=== PATIENT | female | born 1950 | race American Indian/Alaskan Native ===

== ENCOUNTER 2018-02-25 15:10 | Inpatient (IN) | payer MEDICARE ==
[2018-02-25 17:01] LABS: Basophils % (Auto) 0.3 % (0.0-1.8); Eosinophils % (Auto) 0.7 % (0.0-4.3); Hematocrit 38.7 % (30.3-42.9); Hemoglobin 12.5 gm/dl (10.1-14.3); Lymphocytes # (Auto) 0.7 K/mm3 (1.2-5.4); Lymphocytes % (Auto) 9.4 % (13.4-35.0); Mean Corpuscular HGB Conc 32 % (30-34); Mean Corpuscular Hemoglobin 33 pg (28-32); Mean Corpuscular Volume 103 fl (79-97); Monocytes # (Auto) 0.5 K/mm3 (0.0-0.8); Monocytes % (Auto) 6.7 % (0.0-7.3); Platelet Count 190 K/mm3 (140-440); Red Blood Count 3.77 M/mm3 (3.65-5.03); Red Cell Distribution Width 15.6 % (13.2-15.2)
--- NOTE | 2018-02-25 17:17 | Emergency Department Report ---
ED Shortness of Breath HPI - General Chief Complaint: Dyspnea/Respdistress Stated Complaint: BREATHING PROBLEMS Time Seen by Provider: 02/25/18 16:05 Source: EMS Mode of arrival: Stretcher Limitations: No Limitations - History of Present Illness Initial Comments: pt. after leaving the social security office felt very weak generalised and told her daughter. she was also breathing heavily and the daughter noticed she had decresaed level of responsiveness and so they called the paramedics. when they got there her BP and blood sugar were normal.she is presently back to baseline. her xygen level was 90% on her baseline 3 litres and they put her on cpap and this improved her oxygenation.daughter also noticed she had drooling MD Complaint: shortness of breath -: Gradual Severity: moderate Consistency: now resolved Improves With: oxygen Worsens With: nothing Known History Of: congestive heart failure - Related Data Home Medications Medication Instructions Recorded Confirmed Last Taken Clopidogrel [Plavix] 75 mg PO QPM 02/25/18 02/25/18 Unknown Gabapentin [Neurontin] 100 mg PO TID 02/25/18 02/25/18 Unknown Insulin Glargine,Hum.rec.anlog 20 unit SQ QHS 02/25/18 02/25/18 Unknown [Lantus Solostar] Sevelamer Carbonate [Renvela] 2,400 mg PO AC 02/25/18 02/25/18 02/24/18 Simvastatin [Zocor TAB] 20 mg PO QHS 02/25/18 02/25/18 Unknown Vit B Comp C/Folic Acid/Vit D3 1 each PO QPM 02/25/18 02/25/18 Unknown [Dialyvite 800 Plus D Wafer] traMADol [Ultram] 50 mg PO Q4HR PRN 02/25/18 02/25/18 Unknown Allergies Allergy/AdvReac Type Severity Reaction Status Date / Time codeine Allergy Unknown Verified 02/25/18 16:22 ED Review of Systems ROS: Stated complaint: BREATHING PROBLEMS Other details as noted in HPI Comment: All other systems reviewed and negative ED Past Medical Hx - Past Medical History Previous Medical History?: Yes Hx Hypertension: Yes Hx Congestive Heart Failure: Yes Hx Diabetes: Yes Hx Renal Disease: Yes (ESRD HD [id number]) Additional medical history: HLD - Surgical History Past Surgical History?: Yes Additional Surgical History: AV fistula - Medications Home Medications: Home Medications Medication Instructions Recorded Confirmed Last Taken Type Clopidogrel [Plavix] 75 mg PO QPM 02/25/18 02/25/18 Unknown History Gabapentin [Neurontin] 100 mg PO TID 02/25/18 02/25/18 Unknown History Insulin Glargine,Hum.rec.anlog 20 unit SQ QHS 02/25/18 02/25/18 Unknown History [Lantus Solostar] Sevelamer Carbonate [Renvela] 2,400 mg PO AC 02/25/18 02/25/18 02/24/18 History Simvastatin [Zocor TAB] 20 mg PO QHS 02/25/18 02/25/18 Unknown History Vit B Comp C/Folic Acid/Vit D3 1 each PO QPM 02/25/18 02/25/18 Unknown History [Dialyvite 800 Plus D Wafer] traMADol [Ultram] 50 mg PO Q4HR PRN 02/25/18 02/25/18 Unknown History ED Physical Exam - General Limitations: No Limitations General appearance: alert, in no apparent distress - Head Head exam: Present: atraumatic - Eye Eye exam: Present: normal appearance, PERRL - ENT ENT exam: Present: mucous membranes moist - Neck Neck exam: Present: normal inspection - Respiratory Respiratory exam: Present: normal lung sounds bilaterally. Absent: respiratory distress - Cardiovascular Cardiovascular Exam: Present: regular rate, normal rhythm. Absent: systolic murmur, diastolic murmur, rubs, gallop - GI/Abdominal GI/Abdominal exam: Present: soft, normal bowel sounds - Extremities Exam Extremities exam: Present: normal inspection - Neurological Exam Neurological exam: Present: alert, oriented X3 - Psychiatric Psychiatric exam: Present: normal affect, normal mood - Skin Skin exam: Present: warm, dry, intact, normal color. Absent: rash ED Course Vital Signs 02/25/18 02/25/18 02/25/18 16:06 16:08 16:10 Temperature Pulse Rate 87 88 88 Respiratory 16 15 16 Rate Blood Pressure 107/59 107/59 Blood Pressure [Right] O2 Sat by Pulse 94 99 99 Oximetry 02/25/18 02/25/18 02/25/18 16:12 16:14 16:19 Temperature 98.9 F Pulse Rate 90 88 Respiratory 23 14 Rate Blood Pressure 107/59 107/59 Blood Pressure [Right] O2 Sat by Pulse 95 98 Oximetry 02/25/18 02/25/18 02/25/18 17:58 18:00 18:01 Temperature Pulse Rate 89 88 88 Respiratory 23 14 16 Rate Blood Pressure 108/59 107/52 107/52 Blood Pressure [Right] O2 Sat by Pulse 96 97 96 Oximetry 02/25/18 02/25/18 02/25/18 18:02 18:04 18:06 Temperature Pulse Rate 81 87 86 Respiratory 17 18 14 Rate Blood Pressure 107/52 107/52 107/52 Blood Pressure [Right] O2 Sat by Pulse 96 96 96 Oximetry 02/25/18 02/25/18 02/25/18 18:08 18:10 18:12 Temperature Pulse Rate 87 88 86 Respiratory 25 H 15 14 Rate Blood Pressure 107/52 107/52 107/52 Blood Pressure [Right] O2 Sat by Pulse 98 98 97 Oximetry 02/25/18 02/25/18 02/25/18 18:14 18:16 18:18 Temperature Pulse Rate 88 86 89 Respiratory 13 16 19 Rate Blood Pressure 107/52 101/45 101/45 Blood Pressure [Right] O2 Sat by Pulse 96 98 97 Oximetry 02/25/18 02/25/18 02/25/18 18:20 18:21 18:22 Temperature Pulse Rate 88 89 89 Respiratory 14 15 17 Rate Blood Pressure 101/45 101/45 Blood Pressure [Right] O2 Sat by Pulse 95 96 97 Oximetry 02/25/18 02/25/18 02/25/18 18:24 18:26 18:28 Temperature Pulse Rate 91 H 86 90 Respiratory 21 15 14 Rate Blood Pressure 101/45 101/45 101/45 Blood Pressure [Right] O2 Sat by Pulse 93 93 92 Oximetry 02/25/18 02/25/18 02/25/18 18:30 18:31 18:32 Temperature Pulse Rate 89 88 88 Respiratory 13 15 20 Rate Blood Pressure 101/45 115/52 115/52 Blood Pressure [Right] O2 Sat by Pulse 94 94 95 Oximetry 02/25/18 02/25/18 02/25/18 18:33 18:34 18:35 Temperature Pulse Rate 88 87 87 Respiratory 12 15 14 Rate Blood Pressure 115/52 Blood Pressure [Right] O2 Sat by Pulse 95 96 94 Oximetry 02/25/18 02/25/18 02/25/18 18:36 18:37 18:39 Temperature Pulse Rate 87 87 87 Respiratory 16 14 16 Rate Blood Pressure 115/52 Blood Pressure [Right] O2 Sat by Pulse 93 94 97 Oximetry 02/25/18 02/25/18 02/25/18 18:41 18:43 18:45 Temperature Pulse Rate 90 87 86 Respiratory 15 15 18 Rate Blood Pressure 115/52 109/57 Blood Pressure [Right] O2 Sat by Pulse 95 98 97 Oximetry 02/25/18 02/25/18 02/25/18 18:46 18:47 18:49 Temperature Pulse Rate 86 86 86 Respiratory 16 15 16 Rate Blood Pressure 109/57 109/57 109/57 Blood Pressure [Right] O2 Sat by Pulse 97 96 94 Oximetry 02/25/18 02/25/18 02/25/18 18:51 18:53 18:55 Temperature Pulse Rate 86 86 86 Respiratory 17 18 17 Rate Blood Pressure 109/57 109/57 109/57 Blood Pressure [Right] O2 Sat by Pulse 94 93 94 Oximetry 02/25/18 02/25/18 02/25/18 18:57 18:59 19:01 Temperature Pulse Rate 86 86 87 Respiratory 15 19 16 Rate Blood Pressure 109/57 109/57 103/52 Blood Pressure [Right] O2 Sat by Pulse 92 93 93 Oximetry 02/25/18 02/25/18 02/25/18 19:03 19:05 19:07 Temperature Pulse Rate 87 87 87 Respiratory 17 16 16 Rate Blood Pressure 103/52 103/52 103/52 Blood Pressure [Right] O2 Sat by Pulse 94 95 94 Oximetry 02/25/18 02/25/18 02/25/18 19:09 19:11 19:13 Temperature Pulse Rate 88 86 90 Respiratory 20 18 21 Rate Blood Pressure 103/52 103/52 103/52 Blood Pressure [Right] O2 Sat by Pulse 94 96 96 Oximetry 02/25/18 02/25/18 02/25/18 19:15 19:17 19:19 Temperature Pulse Rate 88 88 89 Respiratory 19 17 18 Rate Blood Pressure 94/55 94/55 94/55 Blood Pressure [Right] O2 Sat by Pulse 96 96 95 Oximetry 02/25/18 02/25/18 02/25/18 19:21 19:23 19:30 Temperature Pulse Rate 88 89 88 Respiratory 17 14 14 Rate Blood Pressure 94/55 94/55 105/50 Blood Pressure [Right] O2 Sat by Pulse 93 93 93 Oximetry 02/25/18 02/25/18 02/25/18 19:31 20:00 20:07 Temperature 98.2 F Pulse Rate 81 87 88 Respiratory 21 18 Rate Blood Pressure 116/59 102/62 Blood Pressure 94/55 [Right] O2 Sat by Pulse 92 92 Oximetry 02/25/18 02/25/18 02/25/18 20:30 21:00 21:30 Temperature Pulse Rate 83 84 85 Respiratory 17 17 18 Rate Blood Pressure 99/52 99/55 117/60 Blood Pressure [Right] O2 Sat by Pulse 94 94 94 Oximetry 02/25/18 02/25/18 22:00 22:05 Temperature 99.3 F Pulse Rate 82 84 Respiratory 15 16 Rate Blood Pressure 113/57 Blood Pressure 105/58 [Right] O2 Sat by Pulse 95 94 Oximetry ED Medical Decision Making - Lab Data Result diagrams: 02/25/18 16:45 02/25/18 16:45 - EKG Data -: EKG Interpreted by Me EKG shows normal: sinus rhythm, axis (normal), intervals (normal), QRS complexes (normal), ST-T waves (t wave inversion in lead 11,111 ,avf and v3 -v6) Rate: normal (rate is 83) - Medical Decision Making i spoke to Dr Butler and he said to get a repeat troponoin and if it is same or lower no need to start the heparin. Dr Goncalves accepted the patient for admission Critical care attestation.: If time is entered above; I have spent that time in minutes in the direct care of this critically ill patient, excluding procedure time. ED Disposition Clinical Impression: Pre-syncope, Abnormal cardiac enzyme level Disposition: OP ADMIT IP TO THIS HOSP Is pt being admited?: Yes Does the pt Need Aspirin: Yes Condition: Stable
[2018-02-25 17:37] LABS: Albumin 4.1 g/dL (3.9-5); Calcium 9.4 mg/dL (8.4-10.2)
--- NOTE | 2018-02-25 18:23 | XRay Report ---
FINAL REPORT PROCEDURE: XR CHEST 1V AP TECHNIQUE: Chest radiograph anteroposterior view. CPT 26092 HISTORY: Dyspnea COMPARISON: No prior studies are available for comparison. FINDINGS: Heart: Cardiac silhouette is at the upper limit of normal in size Mediastinum/Vessels: Normal. Lungs/Pleural space: Normal. Bony thorax: No acute osseous abnormality. Life support devices: There is a vascular stent in the region of the left subclavian. IMPRESSION: Prominent cardiac silhouette. No pulmonary infiltrates are seen
--- NOTE | 2018-02-25 18:37 | Cat Scan Report ---
FINAL REPORT PROCEDURE: CT HEAD/BRAIN WO CON TECHNIQUE: Computerized tomography of the head was performed without contrast material. HISTORY: presyncope COMPARISON: No prior studies are available for comparison. FINDINGS: No CT evidence of intracranial mass, hemorrhage, acute territorial infarction, or hydrocephalus. Mild bilateral periventricular white matter low density, compatible with chronic microvascular ischemic changes. The intracranial arteries are symmetric in density. Calvarium is intact. Visualized paranasal sinuses and mastoids are aerated. IMPRESSION: No CT evidence of acute abnormality
[2018-02-25] MEDS ORDERED: BABY ASPIRIN PO ONE (19:33)
[2018-02-25] MEDS ORDERED: LOPRESSOR PO ONE (19:34)
[2018-02-25] MEDS ORDERED: D5W IV SCH (20:00)
[2018-02-25] MEDS ORDERED: HEPARIN IV SCH (20:00)
[2018-02-25 20:14] LABS: INR 1.01 (0.87-1.13)
[2018-02-25] MEDS ORDERED: HEPARIN 10,000 UNITS/10 ML IV ONE (21:19)
[2018-02-25] MEDS ORDERED: HEPARIN 10,000 UNITS/10 ML ONE (21:47)
[2018-02-25] MEDS ORDERED: HEPARIN 25,000 UNIT in D5W 497.5 ML IV SCH (22:00)
[2018-02-26] MEDS ORDERED: AMBIEN PO PRN (00:10)
[2018-02-26] MEDS ORDERED: PROVENTIL IH PRN (00:10)
[2018-02-26] MEDS ORDERED: D50W (25GM) Syringe IV PRN (00:10)
[2018-02-26] MEDS ORDERED: PERCOCET 5/325 PO PRN (00:10)
[2018-02-26] MEDS ORDERED: SODIUM CHLORIDE FLUSH SYRINGE 10 ML IV PRN (00:10)
[2018-02-26] MEDS ORDERED: ZOFRAN IV PRN (00:10)
[2018-02-26] MEDS ORDERED: MORPHINE IV PRN (00:10)
[2018-02-26] MEDS ORDERED: TYLENOL PO PRN (00:10)
[2018-02-26] MEDS ORDERED: ULTRAM PO PRN (00:18)
[2018-02-26] MEDS: DUONEB *Not for PRN Use IH SCH ×4 (03:35→20:06)
[2018-02-26] MEDS: HEPARIN SUB-Q SCH ×3 (06:00→23:03)
--- NOTE | 2018-02-26 06:49 | History and Physical Report ---
History of Present Illness Date of examination: 02/25/18 Date of admission: 02/25/18 20:03 Chief complaint: Shortness of breath History of present illness: pt. after leaving the social security office felt very weak generalised and told her daughter. she was also breathing heavily and the daughter noticed she had decresaed level of responsiveness and so they called the paramedics. when they got there her BP and blood sugar were normal.she is presently back to baseline. her xygen level was 90% on her baseline 3 litres and they put her on cpap and this improved her oxygenation.daughter also noticed she had drooling Past Medical History significant for hypertension and congestive heart failure diabetes and incisional disease on hemodialysis Thursday hyperlipidemia - Surgical History - AV fistula Past History Past Medical History: diabetes Social history: full code. denies: smoking, alcohol abuse, IV drug use Medications and Allergies Allergies Allergy/AdvReac Type Severity Reaction Status Date / Time codeine Allergy Unknown Verified 02/25/18 16:22 Home Medications Medication Instructions Recorded Confirmed Last Taken Type Clopidogrel [Plavix] 75 mg PO QPM 02/25/18 02/25/18 Unknown History Gabapentin [Neurontin] 100 mg PO TID 02/25/18 02/25/18 Unknown History Insulin Glargine,Hum.rec.anlog 20 unit SQ QHS 02/25/18 02/25/18 Unknown History [Lantus Solostar] Sevelamer Carbonate [Renvela] 2,400 mg PO AC 02/25/18 02/25/18 02/24/18 History Simvastatin [Zocor TAB] 20 mg PO QHS 02/25/18 02/25/18 Unknown History Vit B Comp C/Folic Acid/Vit D3 1 each PO QPM 02/25/18 02/25/18 Unknown History [Dialyvite 800 Plus D Wafer] traMADol [Ultram] 50 mg PO Q4HR PRN 02/25/18 02/25/18 Unknown History Active Meds: Active Medications Acetaminophen (Tylenol) 650 mg PO Q4H PRN PRN Reason: Pain MILD(1-3)/Fever >100.5/[place] Albuterol (Proventil) 2.5 mg IH Q3HRT PRN PRN Reason: Shortness Of Breath Albuterol/Ipratropium (Duoneb *Not For Prn Use*) 1 ampul IH Q6HRT [facility] Last Admin: 02/26/18 03:35 Dose: Not Given Clopidogrel Bisulfate (Plavix) 75 mg PO QPM [facility] Dextrose (D50w (25gm) Syringe) 50 ml IV PRN PRN PRN Reason: Hypoglycemia Docusate Sodium (Colace) 100 mg PO BID [facility] Gabapentin (Neurontin) 100 mg PO TID [facility] Heparin Sodium (Porcine) (Heparin) 5,000 unit SUB-Q Q8HR [facility] Last Admin: 02/26/18 06:00 Dose: 5,000 unit Insulin Glargine (Lantus) 20 units SUB-Q QHS [facility] Insulin Human Lispro (Humalog) 0 unit SUB-Q ACHS [facility]; Protocol Miscellaneous Medication (Vit B Comp C/Folic Acid/Vit D3 [Dialyvite 800 Plus D Wafer]) 1 each PO QPM [facility] Morphine Sulfate (Morphine) 2 mg IV Q4H PRN PRN Reason: Pain, Moderate (4-6) Ondansetron HCl (Zofran) 4 mg IV Q8H PRN PRN Reason: Nausea And Vomiting Oxycodone/Acetaminophen (Percocet 5/325) 1 tab PO Q6H PRN PRN Reason: Pain, Moderate (4-6) Pantoprazole Sodium (Protonix) 40 mg PO QDAY [facility] Pravastatin Sodium (Pravachol) 40 mg PO QHS [facility] Senna (Senokot) 8.6 mg PO Q12HR [facility] Sevelamer Carbonate (Renvela) 2,400 mg PO AC [facility] Sodium Chloride (Sodium Chloride Flush Syringe 10 Ml) 10 ml IV BID [facility] Sodium Chloride (Sodium Chloride Flush Syringe 10 Ml) 10 ml IV PRN PRN PRN Reason: LINE FLUSH Tramadol HCl (Ultram) 50 mg PO Q4HR PRN PRN Reason: Pain Zolpidem Tartrate (Ambien) 5 mg PO QHS PRN PRN Reason: Insomnia Review of Systems All systems: negative (all 14 systems reviewed and found to be negative except as mentioned in HPI) Exam - Physical Exam Narrative exam: General: the patient is awake alert oriented to time place and person. no evidence of acute distress HEENT: Head is atraumatic normocephalic,. Pupils equal round reactive to light and accommodation, extraocular movements intact. Oral mucosa moist. Oropharynx clear. No pharyngeal erythema or tonsillar exudate. Neck: Supple no JVD no thyromegaly or lymphadenopathy. Heart: Regular rate and rhythm no murmurs or gallops. S1 and S2 normal. PMI not displaced. Lungs: Clear to auscultation bilaterally. No rales rhonchi wheezing. Nonlabored breathing. Normal chest wall expansion. Abdomen: Soft, nondistended, and nontender. Normoactive bowel sounds. No hepatosplenomegaly. No abdominal masses or bruit appreciated. Extremities: No cyanosis/clubbing/ edema. Musculoskeletal: Normal range of movement all joints. No obvious deformity or tenderness to palpation. Normal muscle tone. Back: Normal alignment. No step-off. No midline or paraspinal tenderness. No CVA tenderness. Neurological: Grossly intact and nonfocal. No cerebellar signs. Cranial nerves II-12 grossly intact. Strength 5 out of 5 all 4 extremities. Sensations grossly intact. Skin: Warm and dry no rashes or bruises. Psychiatric: Normal mood. Appropriate affect and good insight and judgment. Vascular system: No lymphadenopathy. Distal pulses 2+ bilaterally. - Constitutional Vitals: Temp Pulse Resp BP Pulse Ox 99.2 F 70 20 88/70 95 02/25/18 23:10 02/26/18 05:41 02/25/18 23:10 02/26/18 05:39 02/26/18 05:39 Results - Labs CBC & Chem 7: 02/25/18 16:45 02/25/18 16:45 Labs: Laboratory Last Values WBC 7.1 K/mm3 (4.5-11.0) 02/25/18 16:45 RBC 3.77 M/mm3 (3.65-5.03) 02/25/18 16:45 Hgb 12.5 gm/dl (10.1-14.3) 02/25/18 16:45 Hct 38.7 % (30.3-42.9) 02/25/18 16:45 MCV 103 fl (79-97) H 02/25/18 16:45 MCH 33 pg (28-32) H 02/25/18 16:45 MCHC 32 % (30-34) 02/25/18 16:45 RDW 15.6 % (13.2-15.2) H 02/25/18 16:45 Plt Count 190 K/mm3 (140-440) 02/25/18 16:45 Lymph % (Auto) 9.4 % (13.4-35.0) L 02/25/18 16:45 [place] % (Auto) 6.7 % (0.0-7.3) 02/25/18 16:45 Eos % (Auto) 0.7 % (0.0-4.3) 02/25/18 16:45 Baso % (Auto) 0.3 % (0.0-1.8) 02/25/18 16:45 Lymph # 0.7 K/mm3 (1.2-5.4) L 02/25/18 16:45 [place] # 0.5 K/mm3 (0.0-0.8) 02/25/18 16:45 Eos # 0.0 K/mm3 (0.0-0.4) 02/25/18 16:45 Baso # 0.0 K/mm3 (0.0-0.1) 02/25/18 16:45 Seg Neutrophils % 82.9 % (40.0-70.0) H 02/25/18 16:45 Seg Neutrophils # 5.9 K/mm3 (1.8-7.7) 02/25/18 16:45 PT 13.8 Sec. (12.2-14.9) 02/25/18 19:56 INR 1.01 (0.87-1.13) 02/25/18 19:56 APTT 33.0 Sec. (24.2-36.6) 02/25/18 19:56 Sodium 139 mmol/L (137-145) 02/25/18 16:45 Potassium 4.3 mmol/L (3.6-5.0) 02/25/18 16:45 Chloride 93.8 mmol/L (98-107) L 02/25/18 16:45 Carbon Dioxide 22 mmol/L (22-30) 02/25/18 16:45 Anion Gap 28 mmol/L 02/25/18 16:45 BUN 33 mg/dL (7-17) H 02/25/18 16:45 Creatinine 6.7 mg/dL (0.7-1.2) H 02/25/18 16:45 Estimated GFR 7 ml/min 02/25/18 16:45 BUN/Creatinine Ratio 5 % 02/25/18 16:45 Glucose 213 mg/dL (65-100) H 02/25/18 16:45 POC Glucose 151 (70-105) H 02/26/18 05:48 Hemoglobin A1c 6.9 % (4-6) H 02/26/18 00:43 Calcium 9.4 mg/dL (8.4-10.2) 02/25/18 16:45 Total Bilirubin 0.60 mg/dL (0.1-1.2) 02/25/18 16:45 AST 19 units/L (5-40) 02/25/18 16:45 ALT 18 units/L (7-56) 02/25/18 16:45 Alkaline Phosphatase 133 units/L (35-129) H 02/25/18 16:45 Troponin T 0.193 ng/mL (0.00-0.029) H* 02/25/18 22:47 NT-Pro-B Natriuret Pep 67823 pg/mL (0-900) H 02/25/18 16:45 Total Protein 8.1 g/dL (6.3-8.2) 02/25/18 16:45 Albumin 4.1 g/dL (3.9-5) 02/25/18 16:45 Albumin/Globulin Ratio 1.0 % 02/25/18 16:45 Triglycerides 116 mg/dL (2-149) 02/25/18 16:45 Cholesterol 102 mg/dL (50-199) 02/25/18 16:45 LDL Cholesterol Direct 38 mg/dL (50-130) L 02/25/18 16:45 HDL Cholesterol 51 mg/dL (40-59) 02/25/18 16:45 Cholesterol/HDL Ratio 2.00 % 02/25/18 16:45 - Imaging and Cardiology Imaging and Cardiology: EKG shows normal: sinus rhythm, axis (normal), intervals (normal), QRS complexes (normal), ST-T waves (t wave inversion in lead 11,111 ,avf and v3 -v6) Rate: normal (rate is 83) Chest x-ray showing cardiomegaly but no pulmonary infiltrates. Otherwise negative for acute cardiopulmonary process CT head showing no acute abnormality Assessment and Plan Assessment and plan: Assessment and plan - * Syncope * Acute and chronic respiratory failure * CHF * End-stage renal disease on hemodialysis * Diabetes mellitus type 2 * Anemia likely secondary to end-stage renal disease Plan - Admit the patient to medical surgical floor with telemetry MRI brain and carotid ultrasound and echocardiogram Serial cardiac enzymes Monitor closely on telemetry Nephrology consulted for hemodialysis Start on Lipitor and aspirin Check hemoglobin A1c, monitor blood sugars with Accu-Cheks every before meals and daily at bedtime and cover with sliding scale insulin and continue her home dose of Lantus Check a fasting lipid panel Continue oxygen aggressive bronchodilators scheduled and when necessary Monitor CBC and electrolytes Replace electrolytes when necessary DVT GI prophylaxis as ordered Monitor follow the patient closely VTE prophylaxis?: Chemical, Mechanical Plan of care discussed with patient/family: Yes
[2018-02-26] MEDS ORDERED: SEVELAMER CARBONATE 2400 MG PO SCH (07:30)
[2018-02-26] MEDS: HumaLOG SUB-Q SCH ×3 (07:30→16:30)
[2018-02-26 08:03] LABS: Basophils % (Auto) 0.4 % (0.0-1.8); Eosinophils # (Auto) 0.1 K/mm3 (0.0-0.4); Eosinophils % (Auto) 1.6 % (0.0-4.3); Hematocrit 32.4 % (30.3-42.9); Hemoglobin 10.2 gm/dl (10.1-14.3); Lymphocytes % (Auto) 14.6 % (13.4-35.0); Mean Corpuscular HGB Conc 32 % (30-34); Mean Corpuscular Hemoglobin 33 pg (28-32); Mean Corpuscular Volume 104 fl (79-97); Monocytes # (Auto) 0.7 K/mm3 (0.0-0.8); Monocytes % (Auto) 10.7 % (0.0-7.3); Platelet Count 194 K/mm3 (140-440); Red Blood Count 3.12 M/mm3 (3.65-5.03); Red Cell Distribution Width 15.6 % (13.2-15.2)
[2018-02-26 08:24] LABS: Albumin 3.9 g/dL (3.9-5); Calcium 9.3 mg/dL (8.4-10.2)
[2018-02-26] MEDS: SENOKOT PO SCH ×2 (10:18→23:04)
[2018-02-26] MEDS: PROTONIX PO SCH (10:18)
[2018-02-26] MEDS: NEURONTIN PO SCH ×3 (10:18→23:03)
[2018-02-26] MEDS: COLACE PO SCH ×2 (10:19→23:03)
[2018-02-26] MEDS: RENVELA PO SCH ×3 (10:19→16:30)
[2018-02-26] MEDS: SODIUM CHLORIDE FLUSH SYRINGE 10 ML IV SCH ×2 (10:20→23:04)
--- NOTE | 2018-02-26 15:43 | Progress Note ---
Assessment and Plan Assessment and plan: Patient is a 67 yo woman with a history of IDDM w/ neuropathy, dyslipidemia, ESRD on hemodialysis MWF, chronic Subclavian Venous Stenosis s/p stent prior to arrival (d/w Dr. Luis Stephens), chronic respiratory failure on 2 liters of o2 at home and CHF who presented to ED with sob and syncope episode. -Syncope most likely vasovagal but stroke work up ordered, pt may have became hypoxic: mri pending (the Left Subclavian Vein stent is compatible per Dr. Stephens ) -ESRD: Nephrology is following, needs hemodialysis, potassium can be replaced during hemodialysis -Acute on chronic hypoxic respiratory failure: HD should help. -IDDM: add ssi, ada diet -Suspect acute on chronic heart failure: ECHO pending. -Chronic subclavian venous stensis s/p repeat stent: outpt follow up with Dr. Luis Stephens Hospitalist Physical - Constitutional Vitals: Temp Pulse Resp BP Pulse Ox 98.4 F 74 20 96/42 91 02/26/18 11:46 02/26/18 13:00 02/26/18 11:46 02/26/18 11:46 02/26/18 11:46 Results - Labs CBC & Chem 7: 02/26/18 07:34 02/26/18 07:34 Labs: Laboratory Last Values WBC 6.5 K/mm3 (4.5-11.0) 02/26/18 07:34 RBC 3.12 M/mm3 (3.65-5.03) L 02/26/18 07:34 Hgb 10.2 gm/dl (10.1-14.3) 02/26/18 07:34 Hct 32.4 % (30.3-42.9) D 02/26/18 07:34 MCV 104 fl (79-97) H 02/26/18 07:34 MCH 33 pg (28-32) H 02/26/18 07:34 MCHC 32 % (30-34) 02/26/18 07:34 RDW 15.6 % (13.2-15.2) H 02/26/18 07:34 Plt Count 194 K/mm3 (140-440) 02/26/18 07:34 Lymph % (Auto) 14.6 % (13.4-35.0) 02/26/18 07:34 [place] % (Auto) 10.7 % (0.0-7.3) H 02/26/18 07:34 Eos % (Auto) 1.6 % (0.0-4.3) 02/26/18 07:34 Baso % (Auto) 0.4 % (0.0-1.8) 02/26/18 07:34 Lymph # 1.0 K/mm3 (1.2-5.4) L 02/26/18 07:34 [place] # 0.7 K/mm3 (0.0-0.8) 02/26/18 07:34 Eos # 0.1 K/mm3 (0.0-0.4) 02/26/18 07:34 Baso # 0.0 K/mm3 (0.0-0.1) 02/26/18 07:34 Seg Neutrophils % 72.7 % (40.0-70.0) H 02/26/18 07:34 Seg Neutrophils # 4.8 K/mm3 (1.8-7.7) 02/26/18 07:34 PT 13.8 Sec. (12.2-14.9) 02/25/18 19:56 INR 1.01 (0.87-1.13) 02/25/18 19:56 APTT 33.0 Sec. (24.2-36.6) 02/25/18 19:56 Sodium 141 mmol/L (137-145) 02/26/18 07:34 Potassium 4.8 mmol/L (3.6-5.0) 02/26/18 07:34 Chloride 95.1 mmol/L (98-107) L 02/26/18 07:34 Carbon Dioxide 26 mmol/L (22-30) 02/26/18 07:34 Anion Gap 25 mmol/L 02/26/18 07:34 BUN 44 mg/dL (7-17) H 02/26/18 07:34 Creatinine 7.8 mg/dL (0.7-1.2) H 02/26/18 07:34 Estimated GFR 6 ml/min 02/26/18 07:34 BUN/Creatinine Ratio 6 % 02/26/18 07:34 Glucose 160 mg/dL (65-100) H 02/26/18 07:34 POC Glucose 151 (70-105) H 02/26/18 05:48 Hemoglobin A1c 6.9 % (4-6) H 02/26/18 00:43 Calcium 9.3 mg/dL (8.4-10.2) 02/26/18 07:34 Phosphorus 5.30 mg/dL (2.5-4.5) H 02/26/18 07:34 Magnesium 2.50 mg/dL (1.7-2.3) H 02/26/18 07:34 Total Bilirubin 0.50 mg/dL (0.1-1.2) 02/26/18 07:34 AST 14 units/L (5-40) 02/26/18 07:34 ALT 14 units/L (7-56) 02/26/18 07:34 Alkaline Phosphatase 107 units/L (35-129) 02/26/18 07:34 Troponin T 0.196 ng/mL (0.00-0.029) H* 02/26/18 07:34 NT-Pro-B Natriuret Pep 26225 pg/mL (0-900) H 02/25/18 16:45 Total Protein 7.2 g/dL (6.3-8.2) 02/26/18 07:34 Albumin 3.9 g/dL (3.9-5) 02/26/18 07:34 Albumin/Globulin Ratio 1.2 % 02/26/18 07:34 Triglycerides 116 mg/dL (2-149) 02/25/18 16:45 Cholesterol 102 mg/dL (50-199) 02/25/18 16:45 LDL Cholesterol Direct 38 mg/dL (50-130) L 02/25/18 16:45 HDL Cholesterol 51 mg/dL (40-59) 02/25/18 16:45 Cholesterol/HDL Ratio 2.00 % 02/25/18 16:45
[2018-02-26] MEDS ORDERED: HEPARIN 10,000 UNITS/10 ML IV PRN (16:50)
[2018-02-26] MEDS ORDERED: NACL 0.9% 100 ML IV PRN (16:50)
[2018-02-26 17:58] LABS: Creatine Kinase MB 3.9 ng/mL (0.0-4.0)
[2018-02-26] MEDS ORDERED: PLAVIX PO SCH (18:00)
[2018-02-26] MEDS ORDERED: NON-FORMULARY (Vit B Comp C/Folic Acid/Vit D3 [Dialyvite 800 Plus D Wafer] 1 EACH) PO SCH (18:00)
[2018-02-26] MEDS ORDERED: NACL 0.9 (PRIMING MACHINE ONLY DIALYSIS) MC ONE (18:50)
[2018-02-26] MEDS ORDERED: LANTUS SUB-Q SCH (22:00)
[2018-02-26] MEDS ORDERED: NON-FORMULARY (Insulin Glargine,Hum.Rec.Anlog [Lantus Solostar] 20 UNIT) SQ SCH (22:00)
[2018-02-26] MEDS ORDERED: NON-FORMULARY (Simvastatin 20 MG) PO SCH (22:00)
[2018-02-26] MEDS ORDERED: PRAVACHOL PO SCH (22:00)
[2018-02-27] MEDS: HumaLOG SUB-Q SCH ×2 (00:34→10:12)
[2018-02-27] MEDS: DUONEB *Not for PRN Use IH SCH ×3 (02:36→15:07)
[2018-02-27 04:33] VITALS: BP 107/62
[2018-02-27] MEDS: HEPARIN SUB-Q SCH (05:50)
[2018-02-27] MEDS: RENVELA PO SCH (10:13)
[2018-02-27] MEDS: COLACE PO SCH (10:13)
[2018-02-27] MEDS: SENOKOT PO SCH (10:13)
[2018-02-27] MEDS: PROTONIX PO SCH (10:13)
[2018-02-27] MEDS: SODIUM CHLORIDE FLUSH SYRINGE 10 ML IV SCH (10:14)
[2018-02-27] MEDS: NEURONTIN PO SCH (10:14)
[2018-02-27] MEDS ORDERED: ATROPINE 0.1% (CARDIAC) ONE (11:30)
[2018-02-27] MEDS ORDERED: CALCIUM CHLORIDE IV ONE (11:30)
[2018-02-27] MEDS ORDERED: ADRENALIN ONE (11:30)
[2018-02-27] MEDS ORDERED: SODIUM BICARBONATE IV ONE (11:30)
--- NOTE | 2018-02-27 12:13 | Event Note ---
Date: 02/27/18 Ms. Kevin had a tonic clonic seizure witnessed by nurse Juan, CODE MET was called followed by respiratory arrest then bradycardia with PEA, CODE BLUE called. When I arrived, pt was unresponsive with agonal breathing but had a pulse, no seizures seen. Intubation protocol was ordered. Patient lost her pulse and chest compressions were started. Epi was given. ED physician, Dr. Huff was present. ACLS protocol was continued. Intubation was unsuccessful. Anesthesia arrived. Patient still with PEA, atropine, bicarbonate given. After more than 20 minutes, patient was intubated by Anesthesia using a glydescope. Patient went into asystole, time of 1201. I spoke with daughter, Renea.
--- NOTE | 2018-02-27 12:34 | Discharge Summary ---
Providers - Providers Date of Admission: 02/25/18 20:03 Date of discharge: 02/27/18 Attending physician: TOAN HASSAN 02/26/18 15:37 Physical Therapy Evaluation and Treat [CONS] Routine Comment: Reason For Exam: stroke workup 02/26/18 15:38 Occupational Therapy Evaluate and Treat [CONS] Routine Comment: Reason For Exam: stroke workup 02/26/18 16:39 Consult to Physician [CONS] Routine Comment: Consulting Provider: JORY BLISS Physician Instructions: Reason For Exam: ESRD need hemodialysis, pt known to Dr. Fisher Primary care physician: CAREER SERVICES ASSISTANT Hospitalization Hospital course: Patient is a 67 yo woman with a history of IDDM w/ neuropathy, dyslipidemia, ESRD on hemodialysis MWF, chronic Subclavian Venous Stenosis s/p stent prior to arrival (d/w Dr. Luis Stephens), chronic respiratory failure on 2 liters of o2 at home and CHF who presented to ED with sob and syncope episode. -Syncope most likely vasovagal but stroke work up ordered, pt may have became hypoxic: mri pending (the Left Subclavian Vein stent is compatible per Dr. Stephens ) -ESRD: Nephrology is following, needs hemodialysis, potassium can be replaced during hemodialysis, Nephrology notified -Acute on chronic hypoxic respiratory failure: HD should help. -IDDM: add ssi, ada diet -Suspect acute on chronic heart failure and elevated troponin: ECHO pending, ED physician spoke with Dr. Butler, It Support Specialist, regarding elevated troponin. -Chronic subclavian venous stenosis s/p repeat stent: outpt follow up with Dr. Luis Stephens (who I spoke with briefly) 02/27/18: Ms. Kevin had a tonic clonic seizure witnessed by nurse Juan, CODE MET was called followed by respiratory arrest then bradycardia with PEA, CODE BLUE called. When I arrived, pt was unresponsive with agonal breathing but had a pulse, no seizures seen. Intubation protocol was ordered. Patient lost her pulse and chest compressions were started. Epi was given. ED physician, Dr. Huff was present. ACLS protocol was continued. Intubation was unsuccessful. Anesthesia arrived. Patient still with PEA, atropine, bicarbonate given. After more than 20 minutes, patient was intubated by Anesthesia using a glydescope. ACLS was continued but unsuccessful. Patient went into asystole and . CCT 35 minutes Time of 1201. I spoke with daughter, Renea. After leaving [facility] s/p stenting of Subclavian vein, Tia and her mother went to social security office. Then, her mother transiently became unresponsive with drooling out of mouth but no seizure episodes per daughter. ?Facial droop but daughter is not sure. MRI brain was not done. Disposition: DC-20 Time spent for discharge: 33 minutes Core Measure Documentation - Palliative Care Palliative Care/ Comfort Measures: Not Applicable - Core Measures Any of the following diagnoses?: none - VTE Discharge Requirements Deep Vein Thrombosis/Pulmonary Embolism Present on Admission: No Has pt received <5 days of overlap therapy or INR<2.0: No Anticoagulant overlap therapy prescribed at discharge: No Contraindication No Overlap Therapy order at DC: Not Indicated Exam - Constitutional Vitals: Temp Pulse Resp BP Pulse Ox 96.8 F L 102 H 18 107/62 100 02/27/18 04:19 02/27/18 08:16 02/27/18 08:16 02/27/18 04:19 02/27/18 08:02 Plan Follow up with: PRIMARY MD MAKI [Primary Care Provider] - 7 Days
--- NOTE | 2018-02-27 13:42 | Consultation ---
History of Present Illness - Reason for Consult Consult date: 02/27/18 end stage renal disease Past History Past Medical History: diabetes Social history: full code. denies: smoking, alcohol abuse, IV drug use Medications and Allergies Allergies Allergy/AdvReac Type Severity Reaction Status Date / Time codeine Allergy Unknown Verified 02/25/18 16:22 Home Medications Medication Instructions Recorded Confirmed Last Taken Type Clopidogrel [Plavix] 75 mg PO QPM 02/25/18 02/25/18 Unknown History Gabapentin [Neurontin] 100 mg PO TID 02/25/18 02/25/18 Unknown History Insulin Glargine,Hum.rec.anlog 20 unit SQ QHS 02/25/18 02/25/18 Unknown History [Lantus Solostar] Sevelamer Carbonate [Renvela] 2,400 mg PO AC 02/25/18 02/25/18 02/24/18 History Simvastatin [Zocor TAB] 20 mg PO QHS 02/25/18 02/25/18 Unknown History Vit B Comp C/Folic Acid/Vit D3 1 each PO QPM 02/25/18 02/25/18 Unknown History [Dialyvite 800 Plus D Wafer] traMADol [Ultram] 50 mg PO Q4HR PRN 02/25/18 02/25/18 Unknown History Active Meds: Active Medications Acetaminophen (Tylenol) 650 mg PO Q4H PRN PRN Reason: Pain MILD(1-3)/Fever >100.5/[place] Albuterol (Proventil) 2.5 mg IH Q3HRT PRN PRN Reason: Shortness Of Breath Albuterol/Ipratropium (Duoneb *Not For Prn Use*) 1 ampul IH Q6HRT [facility] Last Admin: 02/27/18 08:00 Dose: 1 ampul Clopidogrel Bisulfate (Plavix) 75 mg PO QPM [facility] Last Admin: 02/26/18 23:03 Dose: 75 mg Dextrose (D50w (25gm) Syringe) 50 ml IV PRN PRN PRN Reason: Hypoglycemia Docusate Sodium (Colace) 100 mg PO BID [facility] Last Admin: 02/27/18 10:13 Dose: 100 mg Gabapentin (Neurontin) 100 mg PO TID [facility] Last Admin: 02/27/18 10:14 Dose: 100 mg Heparin Sodium (Porcine) (Heparin) 5,000 unit SUB-Q Q8HR [facility] Last Admin: 02/27/18 05:50 Dose: 5,000 unit Heparin Sodium (Porcine) (Heparin 10,000 Units/10 Ml) 2,000 unit IV CHRISTINE PRN PRN Reason: hemodialysis Last Admin: 02/26/18 20:04 Dose: 2,000 unit Sodium Chloride (Nacl 0.9%) 100 mls @ 999 mls/hr IV CHRISTINE PRN PRN Reason: Hypotension Insulin Glargine (Lantus) 20 units SUB-Q QHS [facility] Last Admin: 02/26/18 23:04 Dose: 20 units Insulin Human Lispro (Humalog) 0 unit SUB-Q [facility]; Protocol Last Admin: 02/27/18 10:12 Dose: Not Given Miscellaneous Medication (Vit B Comp C/Folic Acid/Vit D3 [Dialyvite 800 Plus D Wafer]) 1 each PO QPM [facility] Morphine Sulfate (Morphine) 2 mg IV Q4H PRN PRN Reason: Pain, Moderate (4-6) Ondansetron HCl (Zofran) 4 mg IV Q8H PRN PRN Reason: Nausea And Vomiting Oxycodone/Acetaminophen (Percocet 5/325) 1 tab PO Q6H PRN PRN Reason: Pain, Moderate (4-6) Last Admin: 02/26/18 19:12 Dose: 1 tab Pantoprazole Sodium (Protonix) 40 mg PO QDAY [facility] Last Admin: 02/27/18 10:13 Dose: 40 mg Pravastatin Sodium (Pravachol) 40 mg PO QHS [facility] Last Admin: 02/26/18 23:03 Dose: 40 mg Senna (Senokot) 8.6 mg PO Q12HR [facility] Last Admin: 02/27/18 10:13 Dose: 8.6 mg Sevelamer Carbonate (Renvela) 2,400 mg PO AC [facility] Last Admin: 02/27/18 10:13 Dose: 2,400 mg Sodium Chloride (Sodium Chloride Flush Syringe 10 Ml) 10 ml IV BID [facility] Last Admin: 02/27/18 10:14 Dose: 10 ml Sodium Chloride (Sodium Chloride Flush Syringe 10 Ml) 10 ml IV PRN PRN PRN Reason: LINE FLUSH Tramadol HCl (Ultram) 50 mg PO Q4HR PRN PRN Reason: Pain Last Admin: 02/27/18 10:15 Dose: 50 mg Zolpidem Tartrate (Ambien) 5 mg PO QHS PRN PRN Reason: Insomnia Exam - Vital Signs Vital signs: Vital Signs Pulse Resp Pulse Ox 87 16 94 02/25/18 16:06 02/25/18 16:06 02/25/18 16:06 Results - Lab Results 02/26/18 07:34 02/26/18 07:34 Most recent lab results Calcium 9.3 mg/dL (8.4-10.2) 02/26/18 07:34 Phosphorus 5.30 mg/dL (2.5-4.5) H 02/26/18 07:34 Magnesium 2.50 mg/dL (1.7-2.3) H 02/26/18 07:34
[2018-03-01] MEDS ORDERED: NACL 0.9% 1000 ML ONE (00:24)
== END 2018-02-27 12:01 | DRG 291 ==
LOC: ED 15:10 → 4A 20:03
PROVIDERS: ADMIT Internal Medicine Geriatric Medicine; ATTEND Internal Medicine
PROC: 0BH17EZ Insertion of Endotracheal Airway into Trachea, Via Natural or Artificial Opening (ICD-10-PCS; 2018-02-26)
PROC: 5A1D70Z Performance of Urinary Filtration, Intermittent, Less than 6 Hours Per Day (ICD-10-PCS; 2018-02-26)
PROC: 5A12012 Performance of Cardiac Output, Single, Manual (ICD-10-PCS; principal; 2018-02-27)
DX: I13.2 Hypertensive heart and chronic kidney disease with heart failure and with stage 5 chronic kidney disease, or end stage renal disease (principal); J96.21 Acute and chronic respiratory failure with hypoxia; N18.6 End stage renal disease; J96.20 Acute and chronic respiratory failure, unspecified whether with hypoxia or hypercapnia; I50.9 Heart failure, unspecified; E11.22 Type 2 diabetes mellitus with diabetic chronic kidney disease; E78.5 Hyperlipidemia, unspecified; I46.9 Cardiac arrest, cause unspecified; E11.40 Type 2 diabetes mellitus with diabetic neuropathy, unspecified; Z79.4 Long term (current) use of insulin; Z88.5 Allergy status to narcotic agent; D63.1 Anemia in chronic kidney disease
CPT/HCPCS: 36415; 70450; 71045; 80053; 80061; 82550; 82553; 82962; 83036; 83735; 83880; 84100; 84484; 85025; 85610; 85730; 92950; 93005; 93010; 93306; 93880; 94640; 94760; A9270-GY; J0171; J0461; J1644; J1815; J7030; J7060